=== PATIENT | female | born 1960 | race Hispanic/Latino ===

== ENCOUNTER 2018-12-21 21:37 | Emergency (ER) | payer MEDICARE ==
--- NOTE | 2018-12-21 21:59 | Emergency Department Report ---
Blank Doc - Documentation Documentation: 58 y o female presents cc of left knee pain s/p fall at home on Nov 23 2018 was told by mary that it was fractured pain with applied pressure
--- NOTE | 2018-12-21 22:54 | Emergency Department Report ---
Upper Extremity - [facility] Chief Complaint: Extremity Problem,Nontraumatic Stated Complaint: POSS BLOOD CLOT/LEG Time Seen by Provider: 12/21/18 21:54 Occurred When: >5 Days Mechanism: Unsure Severity: severe Symptoms: Yes Pain with Movement, Yes Swelling, No Deformity, No Limited Range of Movement, No Numbness, No Weakness, No Bruising/Ecchymosis, No Laceration or Abrasion Other History: Patient is a 58-year-old female that presents to the emergency room with complaints of left lower extremity pain that started one month ago. The patient states her primary care sent her here to be rule out a DVT. Patient is complaining of 10 out of 10 pain to her left lower leg. Patient states the pain does not radiate patient states that her left lower extremity is slightly swollen. ED Review of Systems ROS: Stated complaint: POSS BLOOD CLOT/LEG Other details as noted in HPI ED Past Medical Hx - Past Medical History Previous Medical History?: Yes Hx Hypertension: Yes Hx Arthritis: Yes Hx Asthma: Yes - Surgical History Past Surgical History?: Yes Additional Surgical History: Back, Bilateral foot - Social History Smoking Status: Never Smoker Substance Use Type: None Upper Extremity Exam - Exam General: Vital signs noted. No distress. Alert and acting appropriately. ED Course Vital Signs 12/21/18 21:43 Temperature 97.4 F L Pulse Rate 76 Respiratory 16 Rate Blood Pressure 108/68 O2 Sat by Pulse 96 Oximetry Critical care attestation.: If time is entered above; I have spent that time in minutes in the direct care of this critically ill patient, excluding procedure time. ED Disposition Condition: Stable
--- NOTE | 2018-12-21 22:57 | Emergency Department Report ---
ED Extremity Problem HPI - General Chief complaint: Extremity Problem,Nontraumatic Stated complaint: POSS BLOOD CLOT/LEG Time Seen by Provider: 12/21/18 21:54 Source: patient, EMS Mode of arrival: Wheelchair Limitations: No Limitations - History of Present Illness Initial comments: Patient is a 58-year-old female that presents to the emergency room with complaints of left lower extremity pain that started one month ago. The patient states her primary care sent her here to be rule out a DVT. Patient is complaining of 10 out of 10 pain to her left lower leg. Patient states the pain does not radiate patient states that her left lower extremity is slightly swollen. MD Complaint: extremity pain, extremity swelling -: Gradual, month(s) Location: left, lower extremity History of Same: No Radiation: none Severity scale (0 -10): 10 Quality: stabbing Consistency: constant Improves with: elevation, rest Worsens with: walking, palpation Associated Symptoms: denies other symptoms. denies: chest pain, shortness of breath, fever, myalgias, arthralgias, rash - Related Data Previous Rx's Medication Instructions Recorded Last Taken Type traMADol [Ultram] 50 mg PO Q4HR PRN #10 tablet 12/22/18 Unknown Rx Allergies Allergy/AdvReac Type Severity Reaction Status Date / Time acetaminophen [From Tylenol] Allergy Hives Verified 12/21/18 22:01 Penicillins Allergy Rash Verified 12/21/18 22:01 ED Review of Systems ROS: Stated complaint: POSS BLOOD CLOT/LEG Other details as noted in HPI Constitutional: denies: chills, fever Eyes: denies: eye pain, eye discharge, vision change ENT: denies: ear pain, throat pain Respiratory: denies: cough, shortness of breath, wheezing Cardiovascular: denies: chest pain, palpitations Endocrine: no symptoms reported Gastrointestinal: denies: abdominal pain, nausea, diarrhea Genitourinary: denies: urgency, dysuria, discharge Musculoskeletal: denies: back pain, joint swelling, arthralgia Skin: denies: rash, lesions Neurological: denies: headache, weakness, paresthesias Psychiatric: denies: anxiety, depression Hematological/Lymphatic: denies: easy bleeding, easy bruising ED Past Medical Hx - Past Medical History Previous Medical History?: Yes Hx Hypertension: Yes Hx Arthritis: Yes Hx Asthma: Yes - Surgical History Past Surgical History?: Yes Additional Surgical History: Back, Bilateral foot - Social History Smoking Status: Never Smoker Substance Use Type: None - Medications Home Medications: Home Medications Medication Instructions Recorded Confirmed Last Taken Type traMADol [Ultram] 50 mg PO Q4HR PRN #10 tablet 12/22/18 Unknown Rx ED Physical Exam - General Limitations: No Limitations General appearance: alert, in no apparent distress - Head Head exam: Present: atraumatic, normocephalic - Eye Eye exam: Present: normal appearance - ENT ENT exam: Present: mucous membranes moist - Neck Neck exam: Present: normal inspection - Respiratory Respiratory exam: Present: normal lung sounds bilaterally. Absent: respiratory distress - Cardiovascular Cardiovascular Exam: Present: regular rate, normal rhythm. Absent: systolic m urmur, diastolic murmur, rubs, gallop - GI/Abdominal GI/Abdominal exam: Present: soft, normal bowel sounds - Extremities Exam Extremities exam: Present: normal inspection, tenderness, normal capillary refill, calf tenderness. Absent: pedal edema, joint swelling - Back Exam Back exam: Present: normal inspection - Neurological Exam Neurological exam: Present: alert, oriented X3 - Psychiatric Psychiatric exam: Present: normal affect, normal mood - Skin Skin exam: Present: warm, dry, intact, normal color. Absent: rash ED Course Vital Signs 12/21/18 12/21/18 12/21/18 21:43 23:00 23:01 Temperature 97.4 F L 98.2 F Pulse Rate 76 69 Respiratory 16 17 Rate Blood Pressure 108/68 113/69 Blood Pressure 109/71 [Left] O2 Sat by Pulse 96 96 97 Oximetry 12/21/18 12/22/18 23:31 00:00 Temperature Pulse Rate Respiratory Rate Blood Pressure 113/69 128/69 Blood Pressure [Left] O2 Sat by Pulse 99 100 Oximetry - Reevaluation(s) Reevaluation #1: Discussed all results with patient. Patient is stable for discharge. Patient will be discharged home. Patient agrees to plan of care. Patient was discharged home but given an outpatient order for mental shunt in her left lower extremity. Patient will be given Lovenox prior to discharge. Patient will also be given pain medications. Patient given discharge instructions. Patient voiced understanding of discharge instructions. 12/22/18 00:20 ED Medical Decision Making - Lab Data Result diagrams: 12/21/18 23:02 12/21/18 23:02 - Medical Decision Making Patient is a 8-year-old female that presents emergency room for left leg pain for 1 month. Patient's primary care center for evaluation to rule out a clot. Patient d-dimer elevated and rest of labs unremarkable. Patient given an outpatient order for a ultrasound and instructed to return in the morning to the hospital to have her ultrasound done. Patient given pain medication. Patient was discharged home with pain medication prescription. Prior to discharge patient given Lovenox in accordance with the patient's weight. Patient stable for discharge and patient discharged home. - Differential Diagnosis DVT. Leg pain. Critical care attestation.: If time is entered above; I have spent that time in minutes in the direct care of this critically ill patient, excluding procedure time. ED Disposition Clinical Impression: Elevated d-dimer Lower extremity pain Qualifiers: Laterality: left Qualified Code(s): M79.605 - Pain in left leg Disposition: DC-01 TO HOME OR SELFCARE Is pt being admited?: No Does the pt Need Aspirin: No Condition: Stable Instructions: Osteoarthritis (ED), Deep Venous Thrombosis (ED), Knee Pain (ED), Leg Sprain (ED) Additional Instructions: Patient to return to the hospital tomorrow to have her ultrasound done. Patient to follow-up with primary care in 2-3 days. Patient to take ibuprofen when necessary for pain. Patient to return to ER if condition worsens. Patient to take meds as directed. Patient to increase water. Patient to rest. Patient to continue all meds. Prescriptions: traMADol [Ultram] 50 mg PO Q4HR PRN #10 tablet PRN Reason: Pain Referrals: JEFFREY PLASENCIA MD [Referring] - 2-3 Days Time of Disposition: 00:22
[2018-12-21 23:13] LABS: Hematocrit 37.6 % (30.3-42.9); Hemoglobin 12.9 gm/dl (10.1-14.3); Mean Corpuscular HGB Conc 34 % (30-34); Mean Corpuscular Volume 92 fl (79-97); Platelet Count 214 K/mm3 (140-440); Red Blood Count 4.09 M/mm3 (3.65-5.03); Red Cell Distribution Width 13.4 % (13.2-15.2)
[2018-12-21 23:34] LABS: Alanine Aminotransferase 7 units/L (7-56); Albumin 3.9 g/dL (3.9-5); BUN/Creatinine Ratio 20; Blood Urea Nitrogen 12 mg/dL (7-17); Calcium 9.5 mg/dL (8.4-10.2); Hemolysis Index 77
[2018-12-22] MEDS ORDERED: ULTRAM PO ONE (00:08)
[2018-12-22] MEDS ORDERED: LOVENOX SUB-Q ONE (00:17)
[2018-12-22 00:26] VITALS: BP 128/69
== END 2018-12-22 01:49 | disposition home or self-care (01) ==
LOC: ED 21:37
DX: M79.662 Pain in left lower leg (principal); R79.89 Other specified abnormal findings of blood chemistry; I10 Essential (primary) hypertension; M19.90 Unspecified osteoarthritis, unspecified site; J45.909 Unspecified asthma, uncomplicated; Z98.890 Other specified postprocedural states; Z79.899 Other long term (current) drug therapy; Z88.6 Allergy status to analgesic agent; Z88.0 Allergy status to penicillin
CPT/HCPCS: 36415; 80053; 85027; 85379; 96372; 99283; J1650

== ENCOUNTER 2018-12-25 11:33 | Emergency (ER) | payer MEDICARE ==
[2018-12-25] MEDS ORDERED: IBUPROFEN PO ONE (13:23)
--- NOTE | 2018-12-25 13:24 | Emergency Department Report ---
ED Lower Extremity HPI - General Chief Complaint: Extremity Injury, Lower Stated Complaint: L LOWER E PAIN/SWELLING Time Seen by Provider: 12/25/18 12:30 Source: patient, EMS (ems notes not available at time of chart dictation), RN notes reviewed, old records reviewed Mode of arrival: Stretcher Limitations: Physical Limitation - History of Present Illness Initial Comments: This is a pleasant 58-year-old female who is not known to this provider previously. Patient states that she fell onto her left leg/knee at the beginning of October, and believes that she may have fractured her knee. She has posttraumatic swelling. She presents to the ER by her primary care doctor to exclude DVT. Patient was seen in this department a few days ago, for similar symptoms, had screening laboratory tests which were unremarkable, with the exception of an elevated d-dimer. The pain is aching and sharp, increases with palpation and decreases with rest. It does not radiate anywhere. The patient denies DVT, pulmonary embolus risk factors. The patient denies other injuries, and she denies other complaints. She reports that she is poorly mobile at her baseline, and she's been using a wheelchair at home for years. She makes no complaint of urinary retention or incontinence, and she denies bladder or bowel retention, incontinence. MD Complaint: knee injury, leg injury -: Gradual, week(s) Injury: Leg: Left, Knee: Left Type of Injury: blunt Severity: moderate Improves With: rest Worsens With: movement, palpation Context: fall, direct blow Associated Symptoms: swelling - Related Data Previous Rx's Medication Instructions Recorded Last Taken Type traMADol [Ultram] 50 mg PO Q4HR PRN #10 tablet 12/22/18 Unknown Rx Ibuprofen [Motrin] 600 mg PO Q8H PRN #30 tablet 12/25/18 Unknown Rx Allergies Allergy/AdvReac Type Severity Reaction Status Date / Time acetaminophen [From Tylenol] Allergy Hives Verified 12/21/18 22:01 Penicillins Allergy Rash Verified 12/21/18 22:01 ED Review of Systems ROS: Stated complaint: L LOWER E PAIN/SWELLING Other details as noted in HPI Comment: All other systems reviewed and negative Musculoskeletal: joint swelling, arthralgia, myalgia ED Past Medical Hx - Past Medical History Hx Hypertension: Yes Hx Arthritis: Yes Hx Asthma: Yes - Surgical History Additional Surgical History: Back, Bilateral foot - Social History Smoking Status: Never Smoker Substance Use Type: None - Medications Home Medications: Home Medications Medication Instructions Recorded Confirmed Last Taken Type traMADol [Ultram] 50 mg PO Q4HR PRN #10 tablet 12/22/18 Unknown Rx Ibuprofen [Motrin] 600 mg PO Q8H PRN #30 tablet 12/25/18 Unknown Rx ED Physical Exam - General Limitations: Physical Limitation General appearance: alert, obese - Head Head exam: Present: atraumatic, normocephalic - Eye Eye exam: Present: normal appearance, EOMI. Absent: nystagmus - ENT ENT exam: Present: normal exam, normal orophraynx, mucous membranes moist, normal external ear exam - Neck Neck exam: Present: normal inspection, full ROM. Absent: tenderness, meningismus - Respiratory Respiratory exam: Present: normal lung sounds bilaterally. Absent: respiratory distress - Cardiovascular Cardiovascular Exam: Present: regular rate, normal rhythm, normal heart sounds. Absent: bradycardia, tachycardia, irregular rhythm, systolic murmur, diastolic murmur, rubs, gallop - GI/Abdominal GI/Abdominal exam: Present: soft. Absent: distended, tenderness, guarding, rebound, rigid, pulsatile mass - Extremities Exam Extremities exam: Present: normal inspection, tenderness, other (2+ pulses noted on the bilateral upper, lower extremities. The pelvis is stable. There is no long bony tenderness in the right upper extremity, left upper extremity, or right lower extremity. The left lower extremity, there is distal femur tenderness, knee tenderness, and proximal tibia tenderness. The compartments are soft. There is medial and lateral joint line tenderness on the left knee. Dorsi and plantar flexion are intact.). Absent: calf tenderness - Back Exam Back exam: Present: normal inspection - Neurological Exam Neurological exam: Present: alert, oriented X3, other (Extraocular movements intact. Tongue midline. No facial droop. Facial sensation intact to light touch in the V1, V2, V3 distribution bilaterally. 5 and 5 strength in 4 extremities.. Sensation is intact to light touch in 4 extremities.). Absent: motor sensory deficit - Psychiatric Psychiatric exam: Present: normal affect, normal mood - Skin Skin exam: Present: warm, dry, intact, normal color. Absent: rash ED Course Vital Signs 12/25/18 12/25/18 12/25/18 12:09 12:20 12:30 Temperature 97.9 F Pulse Rate 77 Respiratory 18 Rate Blood Pressure 108/66 Blood Pressure 124/63 [Left] O2 Sat by Pulse 98 96 95 Oximetry 12/25/18 12/25/18 13:38 13:58 Temperature 98.3 F Pulse Rate 75 Respiratory 15 Rate Blood Pressure 123/77 Blood Pressure [Left] O2 Sat by Pulse 98 Oximetry ED Lower Extremity MDM - Lab Data Vital Signs 12/25/18 12/25/18 12/25/18 12:09 12:20 12:30 Temperature 97.9 F Pulse Rate 77 Respiratory 18 Rate Blood Pressure 108/66 Blood Pressure 124/63 [Left] O2 Sat by Pulse 98 96 95 Oximetry 12/25/18 12/25/18 13:38 13:58 Temperature 98.3 F Pulse Rate 75 Respiratory 15 Rate Blood Pressure 123/77 Blood Pressure [Left] O2 Sat by Pulse 98 Oximetry - Radiology Data Radiology results: report reviewed, image reviewed DVT study of the bilateral lower extremities is negative for DVT. Plain films of the left femur, left knee, and left fibula/tibia, interpreted by myself, negative for acute disease - Medical Decision Making Differential diagnosis, including not limited to: Bakers cyst, dependent edema, posttraumatic swelling, deconditioning, fracture, dislocation, sprain, strain Assessment and plan: 58-year-old female, sent here for evaluation of subacute left lower extremity pain, she is neurovascularly intact, without evidence of compartment syndrome, plain films do not demonstrate obvious fracture, DVT study not suggestive of DVT. Recently had outpatient screening laboratory studies performed. Does not appear to have an emergent medical condition at this time. Case management consultation/evaluation requested for patient's articulation of chronic pulmonary ability at home. She can be treated with NSAIDs. Patient is suitable for discharge at this point in time. Critical care attestation.: If time is entered above; I have spent that time in minutes in the direct care of this critically ill patient, excluding procedure time. ED Disposition Clinical Impression: Lower extremity pain Qualifiers: Laterality: left Qualified Code(s): M79.605 - Pain in left leg Disposition: -01 TO HOME OR SELFCARE Is pt being admited?: No Does the pt Need Aspirin: No Condition: Stable Additional Instructions: Take the pain medication as needed/directed. Rest, avoid heavy lifting and avoid strenuous physical activities. Weightbearing as tolerated on the left lower extremity. Start early mobilization and walking as soon as possible. Patient should follow up with her primary care doctor or an orthopedist for evaluation for outpatient physical therapy. Patient will likely require weeks to months of physical therapy to improve strength, range of motion, and functionality in the left lower extremity. X-rays of the left leg were interpreted by the ER physician as negative for fracture and dislocation. However, a radiologist will review these plain films, and occasionally, a radiologist will change the formal interpretation. Therefore, it is possible that they will be a change in the interpretation of the x-ray. Please have your primary care doctor contact the medical records department to obtain x-ray results. Take the pain medication as needed/directed, and follow-up with an orthopedic surgeon or primary care doctor within the next 7-10 days. Please return to the emergency room right away with new, worsening or different symptoms, or symptoms not present on the initial emergency room evaluation. Referrals: PRIMARY CARE [Primary Care Provider] - 3-5 Days
--- NOTE | 2018-12-25 13:50 | Vascular Lab Report ---
[facility] [address] [place] [address] Vascular Lab Report Signed Patient: ASHLI ALVAREZ MR#: [id number] : 1960 Acct:[id number] Age/Sex: 58 / F ADM Date: 12/25/18 Loc: ED Attending Dr: Ordering Physician: KALYAN HOLLAND MD Date of Service: 12/25/18 Procedure(s): VL venous duplex LE BILAT Accession Number(s): [id number] cc: KALYAN HOLLAND MD DUPLEX DOPPLER LOWER EXTREMITY VEINS, BILATERAL INDICATION / CLINICAL INFORMATION: leg pain swelling. TECHNIQUE: Duplex doppler imaging was performed through the veins of both lower extremities using venous compression and other maneuvers. COMPARISON: None available. FINDINGS: Right Common Femoral vein: Negative. Right Femoral vein: Negative. Right Popliteal vein: Negative. Right Calf veins: Negative. Left Common Femoral vein: Negative. Left Femoral vein: Negative. Left Popliteal vein: Negative. Left Calf veins: Negative. Additional findings: Small left popliteal fossa cyst. IMPRESSION: 1. No sonographic evidence for DVT in either lower extremity. 2. Small left Guadalupe's cyst. Signer Name: Zurdo Meng MD Signed: 12/25/2018 1:46 PM Workstation Name: [id number] Transcribed By: REF Dictated By: KARLIE SOOD MD Electronically Authenticated By: KARLIE SOOD MD Signed Date/Time: 12/25/18 1246 DD/ 1245 TD/TT:
--- NOTE | 2018-12-25 15:11 | XRay Report ---
Left knee-2 views Left leg-4 views INDICATION: Left leg pain. COMPARISON: None. IMPRESSION: No acute osseous or soft tissue abnormality. 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 Signer Name: Barney Rangel MD Signed: 12/25/2018 3:07 PM Workstation Name: [id number]
--- NOTE | 2018-12-25 15:15 | XRay Report ---
Left femur-4 views INDICATION: left leg pain. COMPARISON: None. IMPRESSION: No acute osseous or soft tissue abnormality. Mild DJD in the hip. Moderate tricompart mental DJD in the knee. Signer Name: Barney Rangel MD Signed: 12/25/2018 3:11 PM Workstation Name: [id number]
[2018-12-25 18:49] VITALS: BP 130/85
== END 2018-12-25 18:49 | disposition home or self-care (01) ==
LOC: ED 11:33
DX: M25.562 Pain in left knee (principal); M79.652 Pain in left thigh; M79.605 Pain in left leg; J45.909 Unspecified asthma, uncomplicated; M19.90 Unspecified osteoarthritis, unspecified site; Z79.1 Long term (current) use of non-steroidal anti-inflammatories (NSAID); Z88.0 Allergy status to penicillin; Z88.5 Allergy status to narcotic agent; W01.198A Fall on same level from slipping, tripping and stumbling with subsequent striking against other object, initial encounter; Y93.89 Activity, other specified; Y92.89 Other specified places as the place of occurrence of the external cause; Y99.8 Other external cause status
CPT/HCPCS: 93970